=== PATIENT | male | born 1955 | race Caucasian/White ===

== ENCOUNTER 2022-07-15 09:08 | Outpatient (REF) | payer MEDICARE, MEDICAID, SELFPAY ==
[2022-07-15 11:19] LABS: MANUAL DIFF FLAG NO
[2022-07-15 11:20] LABS: Basophils Absolute Auto 0.1 X10*3/uL (0.0-0.2); Basophils Percent Auto 1.2 % (0-2); Eosinophils Absolute Auto 0.4 X10*3/uL (0.0-0.4); Eosinophils Percent Auto 4.2 % (0-4); Hematocrit 43.3 % (42.0-52.0); Hemoglobin 15.1 g/dl (14.0-18.0); Imm Gran Abs Auto 0.04 X10*3/uL (0.00-0.03); Imm Gran Pct Auto 0.4 % (0.0-0.4); Lymphocytes Absolute Auto 1.9 X10*3/uL (1.2-4.9); Lymphocytes Percent Auto 18.7 % (20-40); Mean Corpuscular HGB Conc 34.9 g/dl (31.0-36.0); Mean Corpuscular Hemoglobin 31.7 pg (27.0-33.0); Mean Platelet Volume 9.8 fL (9.4-12.4); Monocytes Absolute Auto 0.9 X10*3/uL (0.1-1.2); Monocytes Percent Auto 8.9 % (2-11); Neutrophils Absolute Auto 6.9 x10*3/uL (2.0-8.3); Neutrophils Percent Auto 66.6 % (45-73); Platelet Count 268 X10*3/uL (160-400); Red Blood Count 4.76 X10*6/uL (4.60-5.80); Red Cell Distribution Width 13.2 % (11.0-16.0); White Blood Count 10.3 X10*3/uL (4.8-10.8)
[2022-07-15 12:03] LABS: Alanine Aminotransferase 71 U/L (0-40); Albumin Level 4.4 g/dL (3.5-5.0); Alkaline Phosphatase 131 U/L (39-117); Anion Gap 17 (12-20); Aspartate Amino Transferase 57 U/L (5-37); Bilirubin Total 1.7 mg/dL (0.0-1.0); Blood Urea Nitrogen 9 mg/dL (9-16); Calcium 9.5 mg/dL (8.4-10.2); Carbon Dioxide 26 mmol/L (22-29); Chloride 101 mmol/L (96-108); Cholesterol 182 mg/dL; Estimated Glomerular Filt Rate > 60; Glucose Fasting 139 mg/dL (60-99); HDL Cholesterol 53 mg/dL; LDL Cholesterol Calculated 112 mg/dl; Potassium 4.5 mmol/L (3.3-5.1); Sodium 139 mmol/L (135-145); Total Protein 7.3 g/dL (6.5-8.0); Triglycerides 86 mg/dL
[2022-07-15 12:28] LABS: TSH reflex Free T4 1.79 uIU/mL (0.32-4.0)
[2022-07-20 15:42] LABS: Vitamin D 25-OH, D2 <4 ng/mL; Vitamin D 25-OH, D3 26 ng/mL; Vitamin D 25-OH, Total 26 ng/mL (30-100)
== END 2022-07-15 09:09 | disposition home or self-care (01) ==
LOC: HO.HMGCLDS 09:08
PROVIDERS: PCP Internal Medicine; Visit Provider Internal Medicine
DX: E10.9 Type 1 diabetes mellitus without complications (principal); J45.40 Moderate persistent asthma, uncomplicated; F41.1 Generalized anxiety disorder; E66.09 Other obesity due to excess calories; K76.0 Fatty (change of) liver, not elsewhere classified; E78.9 Disorder of lipoprotein metabolism, unspecified
CPT/HCPCS: 36415; 80053; 80061; 82306; 84443; 85025

== ENCOUNTER 2022-11-16 12:03 | Outpatient (REF) | payer MEDICARE, MEDICAID, SELFPAY ==
--- NOTE | ~2022-11-16 | XR_ITS ---
EXAMINATION: XR RIBS, RIGHT CLINICAL INFORMATION: R07.81 - Pleurodynia COMPARISON: None TECHNIQUE: Frontal view chest and 3 views of the right ribs are obtained for a total of 4 views. FINDINGS: The lungs are clear. There is no pneumothorax, airspace consolidation, or effusion. The costophrenic sulci are well-defined. The heart is normal in size. The vascularity is normal. The hilar and mediastinal contours are unremarkable. There are mild degenerative changes bilateral acromioclavicular joints and multilevel degenerative disc changes thoracic spine. There is calcific tendinosis in region of distal right superior rotator cuff with calcification measuring approximately 3 x 7 mm. There is no visible right rib fracture or rib destructive process. No periostitis. XR/XR ribs RT min 3V w CXR1V IMPRESSION: 1. No visible right rib fracture or rib destructive process. 2. No pneumothorax, airspace consolidation, or effusion. 3. Calcific tendinosis distal right shoulder superior rotator cuff.
== END 2022-11-16 12:04 | disposition home or self-care (01) ==
LOC: HO.HMGCX 12:03
PROVIDERS: PCP Internal Medicine; Visit Provider Nurse Practitioner Family
DX: M89.8X1 Other specified disorders of bone, shoulder (principal); R07.81 Pleurodynia
CPT/HCPCS: 71101

== ENCOUNTER 2022-12-22 13:16 | Outpatient (REF) | payer MEDICARE, MEDICAID, SELFPAY ==
[2022-12-22 16:29] LABS: MANUAL DIFF FLAG NO
[2022-12-22 16:33] LABS: Basophils Absolute Auto 0.1 X10*3/uL (0.0-0.2); Basophils Percent Auto 1.2 % (0-2); Eosinophils Absolute Auto 0.4 X10*3/uL (0.0-0.4); Eosinophils Percent Auto 4.7 % (0-4); Hematocrit 45.8 % (42.0-52.0); Hemoglobin 15.5 g/dl (14.0-18.0); Imm Gran Abs Auto 0.03 X10*3/uL (0.00-0.03); Imm Gran Pct Auto 0.3 % (0.0-0.4); Lymphocytes Absolute Auto 1.6 X10*3/uL (1.2-4.9); Lymphocytes Percent Auto 18.4 % (20-40); Mean Corpuscular HGB Conc 33.8 g/dl (31.0-36.0); Mean Corpuscular Hemoglobin 32.2 pg (27.0-33.0); Mean Platelet Volume 10.2 fL (9.4-12.4); Monocytes Absolute Auto 0.7 X10*3/uL (0.1-1.2); Monocytes Percent Auto 8.1 % (2-11); Neutrophils Absolute Auto 5.9 x10*3/uL (2.0-8.3); Neutrophils Percent Auto 67.3 % (45-73); Platelet Count 233 X10*3/uL (160-400); Red Blood Count 4.82 X10*6/uL (4.60-5.80); Red Cell Distribution Width 14.2 % (11.0-16.0); White Blood Count 8.8 X10*3/uL (4.8-10.8)
[2022-12-22 16:54] LABS: Alanine Aminotransferase 60 U/L (0-40); Albumin Level 4.1 g/dL (3.5-5.0); Alkaline Phosphatase 115 U/L (39-117); Anion Gap 13 (12-20); Aspartate Amino Transferase 41 U/L (5-37); Blood Urea Nitrogen 11 mg/dL (9-16); Calcium 9.2 mg/dL (8.4-10.2); Carbon Dioxide 29 mmol/L (22-29); Chloride 103 mmol/L (96-108); Estimated Glomerular Filt Rate > 60; Glucose Random 208 mg/dL (60-115); Potassium 4.2 mmol/L (3.3-5.1); Sodium 141 mmol/L (135-145); Total Protein 6.8 g/dL (6.5-8.0)
[2022-12-24 10:39] LABS: LDL Cholesterol Direct 91 mg/dL (<100)
== END 2022-12-22 13:17 | disposition home or self-care (01) ==
LOC: HO.HMGCLDS 13:16
PROVIDERS: Visit Provider Internal Medicine
DX: Z00.01 Encounter for general adult medical examination with abnormal findings (principal); E10.9 Type 1 diabetes mellitus without complications; J45.40 Moderate persistent asthma, uncomplicated; F41.1 Generalized anxiety disorder; E66.09 Other obesity due to excess calories; K76.0 Fatty (change of) liver, not elsewhere classified; E78.9 Disorder of lipoprotein metabolism, unspecified; I10 Essential (primary) hypertension; K21.9 Gastro-esophageal reflux disease without esophagitis
CPT/HCPCS: 36415; 80053; 83721; 85025

== ENCOUNTER 2022-12-29 14:00 | Outpatient (RCR) | payer MEDICARE, MEDICAID, SELFPAY ==
--- NOTE | 2022-12-02 14:00 | MHC.PT.EP ---
[facility] [place] Office [place] Office [place] Office [address] [phone] F: [phone] F: [phone] F: [phone] F: [phone] Physical Therapy Plan of Care Date of Evaluation: Date of Surgery: Diagnosis: R shoulder bone disorder Assessment: Patient is a 67 year old R handed male who presents with s/s consistent with R shoulder pain. 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 He has a history of frozen shoulder. Patient past medical history also includes DM. Current impairments include pain, posture, ROM, strength, activity tolerance and functional mobility. Functional limitations include decreased ability to lift, carry, reach, push, pull, dress, and sleep. Patient is motivated with good rehab potential. Skilled PT will address impairments and functional limitations in order to achieve goals. Frequency and Duration: The patient will be seen 2x/week for 5 weeks Short Term Goals: I with HEP - 2 weeks AROM cervical flexion 25, ext 30, rotation 45 b/l - 3 weeks TTP medial scap, LS/UT absent - 3 weeks Chcf Goals: Shoulder AROM flexion and scaption > 125 - 5 weeks SPADI 30/130 or better - 5 weeks Improved postural awareness - 5 weeks Pec tightness min b/l - 5 weeks Treatment Plan: Modalities to reduce pain, spasms and effusion. Manual therapy to restore motion and function. Therapeutic exercise to improve strength and flexibility. Neuromuscular re-education for posture and balance. Therapeutic activities to return to functional activities of daily living. Electronically signed by: Bradley Madden, PT Please sign and return to therapist. Thank you for your referral.
--- NOTE | 2023-03-15 09:07 | MHC.PT.DC ---
[facility] [place] Office [place] Office [place] Office [address] Amberly Guzman [address] [phone] F: [phone] F: [phone] F: [phone] F: [phone] Physical Therapy Discharge Report Diagnosis: R shoulder bone disorder Date of Surgery: Date of Evaluation: 12/02/22 Date of Discharge: 01/30/23 Treatments to Date: 4 Cancellations to Date: No Shows to Date: Discharge Status: Patient Elected to Stop Discharge Summary: We were not able to progress in any way during 4 appointments. 12/29/22: pt notes having to leave at 2:30 today and preferring CP before dismissal. he was able to do some stretching within pain free ROM today. 12/24: Pt reports he does his exercises to a point then needs CP to calm down Sx. Progressed his home program with shoulder stab and AAROM ideas; some increased discomfort by the end of session though as Pt reports typical after 6-8 min with CP his Sx improved. 12/17/22: pt unable to perform pulleys or UBE due to pain. pain at CT junction to R with push/pull activities and cervical rotation. 12/11/22: pt has been compliant with HEP. no adverse reactions from HEP. [place] scaption caused some discomfort today. IFC started with good resopnse. Patient is a 67 year old R handed male who presents with s/s consistent with R shoulder pain. 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 He has a history of frozen shoulder. Patient past medical history also includes DM. Current impairments include pain, posture, ROM, strength, activity tolerance and functional mobility. Functional limitations include decreased ability to lift, carry, reach, push, pull, dress, and sleep. Patient is motivated with good rehab potential. Skilled PT will address impairments and functional limitations in order to achieve goals. Electronically signed by: Bradley Madden, PT Please sign and return to therapist. Thank you for your referral.
== END 2023-03-15 09:16 | disposition home or self-care (01) ==
LOC: HO.PTCHIC 14:00
PROVIDERS: PCP Internal Medicine; Visit Provider Internal Medicine
DX: M89.8X1 Other specified disorders of bone, shoulder (principal)
CPT/HCPCS: 97014; 97110; 97140; 97162

== ENCOUNTER 2023-03-26 12:19 | Outpatient (REF) | payer MEDICARE, MEDICAID, SELFPAY ==
[2023-03-26 14:32] LABS: Alanine Aminotransferase 35 U/L (0-40); Alkaline Phosphatase 116 U/L (39-117); Anion Gap 12 (12-20); Aspartate Amino Transferase 25 U/L (5-37); Blood Urea Nitrogen 10 mg/dL (9-16); Calcium 9.4 mg/dL (8.4-10.2); Carbon Dioxide 30 mmol/L (22-29); Chloride 103 mmol/L (96-108); Estimated Glomerular Filt Rate > 60; Glucose Random 201 mg/dL (60-115); Potassium 3.8 mmol/L (3.3-5.1); Sodium 141 mmol/L (135-145); Total Protein 7.1 g/dL (6.5-8.0)
[2023-03-26 14:40] LABS: Prostate Specific Antigen 0.22 ng/mL (<0.05-4.0)
[2023-03-28 02:34] LABS: LDL Cholesterol Direct 101 mg/dL (<100)
== END 2023-03-26 12:20 | disposition home or self-care (01) ==
LOC: HO.HMGCLDS 12:19
PROVIDERS: Absent Provider Urology; PCP Internal Medicine; Visit Provider Internal Medicine
DX: Z12.5 Encounter for screening for malignant neoplasm of prostate (principal); E66.09 Other obesity due to excess calories; E78.9 Disorder of lipoprotein metabolism, unspecified; F41.1 Generalized anxiety disorder; I10 Essential (primary) hypertension; J45.40 Moderate persistent asthma, uncomplicated; K76.0 Fatty (change of) liver, not elsewhere classified; N40.1 Benign prostatic hyperplasia with lower urinary tract symptoms
CPT/HCPCS: 36415; 80053; 83721; 84153

== ENCOUNTER 2023-06-08 11:49 | Outpatient (AMB) | payer MEDICARE, MEDICAID, SELFPAY ==
[2023-06-08 11:51] VITALS: BP 146/78; PULSE 83; O2SAT 99; BMI 37.6
--- NOTE | 2023-06-08 11:51 | MHC.PC.OV ---
Vital Signs 06/08/23 11:51 Height 5 ft 8 in Weight 247 lb 2 oz BMI 37.6 BP 146/78 H Blood Pressure Location Rt brachial Position Sitting Pulse 83 Pulse Source Pulse Oximeter Pulse Oximetry (%) 99 Oxygen Delivery Method Room Air Intake Visit Reasons: 3m follow up Allergies lisinopril Adverse Reaction (Verified 06/08/23 11:52) Cough eggs Allergy (Uncoded 09/18/22 07:34) nausea Medication List - Last Reconciled 06/08/23 by Aki Mcfarlane MD alcohol swabs (Alcohol Prep Pads) pad topical alprazolam 0.25 mg PO ONCE 90 days atorvastatin 20 mg PO DAILY azelastine intranasal budesonide-formoterol 80-4.5 mcg/actuation (Symbicort) 2 puffs inhalation BID epinephrine IM insulin aspart (niacinamide) 100 unit/mL (3 mL) (Fiasp FlexTouch U-100 Insulin) 1 sliding scale dose subcut TID insulin glargine (Lantus Solostar U-100 Insulin) 95 subcutaneously; losartan 25 mg PO BID 90 days mometasone-formoterol 100-5 mcg/actuation (Dulera) 2 puffs inhalation BID pantoprazole 40 mg PO DAILY 90 days pen needle, diabetic (BD Ultra-Fine Mini Pen Needle) As directed spironolactone 25 mg PO DAILY Ventolin HFA 90 mcg/actuation (albuterol sulfate) 2 puffs inhalation Q6-8H NS Tobacco use date assessed: 06/08/23 Fall risk assessment: 2 + Falls in past year Last assessed Fall Risk: 06/08/23 Dental Screening Dental Screen Date: 06/08/23 Did you have a dental visit in the last 12 months?: Yes Did you have a dental problem in the last 6 months where you did not have access to dental care?: No Was dental information given to patient?: No HPI 3m follow up HPI Details Patient is 68-year-old gentleman came in today for medication refill and follow-up Blood pressure is elevated today at 146/78 Patient is taking losartan 25 mg b.i.d. and spironolactone 25 mg daily I have told him to start logging his blood pressure at home and bring it along next visit. He is also wheezing slightly right side of lung posteriorly, patient is supposed to be on Symbicort daily but he is not taking it daily. Instructed to start using it regularly and rinse his mouth after Alprazolam sent for next 3 month Patient is aware of side effects Labs are needed before next visit fasting Other providers patient is seeing Endocrinology Dr. Jenny Bird with [facility] Seeing pulp mixer for kidney cyst in [place] [employer] [facility] at [place] for fatty liver Dr Collado Urologist Dr. Amezcua [facility] eye care, Dr Cartagena/Valerie All medication through PCP office except diabetes medication Patient is on alprazolam 0.25 mg as needed he gets 90 tablets every 3 months for anxiety Taking atorvastatin 20 mg for lipid control Symbicort for asthma Losartan 25 mg b.i.d. and spironolactone 25 mg for blood pressure control Pantoprazole 40 mg for chronic GERD BMI is elevated patient is having difficulty losing weight Diabetic neuropathy stable Follow-up 3 months [facility] Surgical History Hx of appendectomy Hx of tonsillectomy Family History Father Heart problem Mother Rheumatoid arthritis Social History Housing: Condominium Patient Tobacco Use Status: Never used Tobacco e-Cigarette/Vaping Use: Never Used service: No Current occupational status: retired Current occupational exposures/hazards: No Cognitive needs: No Hearing needs: No Vision needs: Yes Questionnaire PHQ-9 Over the last 2 weeks, how often have you been bothered by any of the following problems? 93532 - PHQ-9 Billing: Patient declined-do not bill Source: Developed by Drs. Larry Small, Cheryle Pandya, Chun Ayala and colleagues, with an educational mami from [employer]. Review of Systems Const Denies chills and Denies fever(s) ENT Denies epistaxis and Denies nasal discharge Card Denies chest pain Resp Denies chest congestion and Denies hemoptysis GI Denies diarrhea and Denies nausea Skin/Breast Denies rash Neuro Reports no additional complaints Psych Reports no additional complaints Endo Reports no additional complaints Physical exam (Primary Care) Vital Signs: Last Vital Signs Pulse 83 06/08/23 11:51 BP 146/78 H 06/08/23 11:51 Pulse Ox 99 06/08/23 11:51 Oxygen Delivery Method Room Air 06/08/23 11:51 BMI result Body Mass Index 37.6 Tobacco/Smoking Status: Tobacco use Status Tobacco use date assessed 06/08/23 06/08/23 11:54 Patient Tobacco Use Status Never used Tobacco 06/08/23 11:54 e-Cigarette/Vaping Use Never Used 06/08/23 11:54 Const General: cooperative, comfortable and no acute distress Orientation/consciousness: patient oriented x3 HENMT Head: Yes normocephalic Eyes General: appearance normal, both eyes and all related structures Neck Neck: Yes supple Resp Other: Mild wheezing right lung posteriorly Effort & Inspection: normal respiratory effort, no cough and no stridor Cardio Rhythm: regular rhythm Heart sounds: S1 normal heart sound present and S2 normal heart sound present Skin General skin exam: turgor normal Neuro General: patient oriented x3, tone normal and moves all extremities Extrem Right lower extremity: no edema Left lower extremity: no edema Assessment and Plan Assessment & Plan (1) Asthma, moderate persistent: Code(s): J45.40 - Moderate persistent asthma, uncomplicated Qualifiers: Asthma complication type: uncomplicated Qualified Code(s): J45.40 - Moderate persistent asthma, uncomplicated (2) Insulin dependent type 1 diabetes mellitus: Code(s): E10.9 - Type 1 diabetes mellitus without complications Qualifiers: Diabetes mellitus complication detail: with polyneuropathy Diabetes mellitus complication status: with neurologic complications Qualified Code(s): E10.42 - Type 1 diabetes mellitus with diabetic polyneuropathy (3) Anxiety, generalized: Code(s): F41.1 - Generalized anxiety disorder (4) Obesity due to excess calories: Code(s): E66.09 - Other obesity due to excess calories Qualifiers: Body mass index: BMI 37.0-37.9 Obesity classification: adult class 2 (BMI 35 - 39.9) Serious obesity comorbidity presence: with serious comorbidity Qualified Code(s): E66.01 - Morbid (severe) obesity due to excess calories; Z68.37 - Body mass index [BMI] 37.0-37.9, adult (5) Fatty liver: Code(s): K76.0 - Fatty (change of) liver, not elsewhere classified (6) Lipid disorder: Code(s): E78.9 - Disorder of lipoprotein metabolism, unspecified (7) Hypertension, essential: Code(s): I10 - Essential (primary) hypertension (8) Chronic GERD: Code(s): K21.9 - Gastro-esophageal reflux disease without esophagitis (9) Diabetic neuropathy: Code(s): E11.40 - Type 2 diabetes mellitus with diabetic neuropathy, unspecified Qualifiers: Diabetes mellitus complication detail: diabetic polyneuropathy Diabetes mellitus type: type 1 Qualified Code(s): E10.42 - Type 1 diabetes mellitus with diabetic polyneuropathy Plan Patient is 68-year-old gentleman came in today for medication refill and follow-up Blood pressure is elevated today at 146/78 Patient is taking losartan 25 mg b.i.d. and spironolactone 25 mg daily I have told him to start logging his blood pressure at home and bring it along next visit. He is also wheezing slightly right side of lung posteriorly, patient is supposed to be on Symbicort daily but he is not taking it daily. Instructed to start using it regularly and rinse his mouth after Alprazolam sent for next 3 month Patient is aware of side effects Labs are needed before next visit fasting Other providers patient is seeing Endocrinology Dr. Jenny Bird with [facility] Seeing pulp mixer for kidney cyst in [place] [employer] at [place] for fatty liver Dr Collado Urologist Dr. Amezcua [facility] eye care, Dr Cartagena/Valerie All medication through PCP office except diabetes medication Patient is on alprazolam 0.25 mg as needed he gets 90 tablets every 3 months for anxiety Taking atorvastatin 20 mg for lipid control Symbicort for asthma Losartan 25 mg b.i.d. and spironolactone 25 mg for blood pressure control Pantoprazole 40 mg for chronic GERD BMI is elevated patient is having difficulty losing weight Diabetic neuropathy stable Follow-up 3 months Orders: Orders Comprehensive Met. Panel Today E10.9 - Type 1 diabetes mellitus without complications, E11.40 - Type 2 diabetes mellitus with diabetic neuropathy, unspecified, E66.09 - Other obesity due to excess calories, E78.9 - Disorder of lipoprotein metabolism, unspecified, F41.1 - Generalized anxiety disorder, I10 - Essential (primary) hypertension, J45.40 - Moderate persistent asthma, uncomplicated, K21.9 - Gastro-esophageal reflux disease without esophagitis, K76.0 - Fatty (change of) liver, not elsewhere classified Hemoglobin A1c Today E10.9 - Type 1 diabetes mellitus without complications, E11.40 - Type 2 diabetes mellitus with diabetic neuropathy, unspecified, E66.09 - Other obesity due to excess calories, E78.9 - Disorder of lipoprotein metabolism, unspecified, F41.1 - Generalized anxiety disorder, I10 - Essential (primary) hypertension, J45.40 - Moderate persistent asthma, uncomplicated, K21.9 - Gastro-esophageal reflux disease without esophagitis, K76.0 - Fatty (change of) liver, not elsewhere classified Lipid Panel Today E10.9 - Type 1 diabetes mellitus without complications, E11.40 - Type 2 diabetes mellitus with diabetic neuropathy, unspecified, E66.09 - Other obesity due to excess calories, E78.9 - Disorder of lipoprotein metabolism, unspecified, F41.1 - Generalized anxiety disorder, I10 - Essential (primary) hypertension, J45.40 - Moderate persistent asthma, uncomplicated, K21.9 - Gastro-esophageal reflux disease without esophagitis, K76.0 - Fatty (change of) liver, not elsewhere classified TSH reflex Free T4 Today E10.9 - Type 1 diabetes mellitus without complications, E11.40 - Type 2 diabetes mellitus with diabetic neuropathy, unspecified, E66.09 - Other obesity due to excess calories, E78.9 - Disorder of lipoprotein metabolism, unspecified, F41.1 - Generalized anxiety disorder, I10 - Essential (primary) hypertension, J45.40 - Moderate persistent asthma, uncomplicated, K21.9 - Gastro-esophageal reflux disease without esophagitis, K76.0 - Fatty (change of) liver, not elsewhere classified Complete Blood Count Auto Diff Today E10.9 - Type 1 diabetes mellitus without complications, E11.40 - Type 2 diabetes mellitus with diabetic neuropathy, unspecified, E66.09 - Other obesity due to excess calories, E78.9 - Disorder of lipoprotein metabolism, unspecified, F41.1 - Generalized anxiety disorder, I10 - Essential (primary) hypertension, J45.40 - Moderate persistent asthma, uncomplicated, K21.9 - Gastro-esophageal reflux disease without esophagitis, K76.0 - Fatty (change of) liver, not elsewhere classified Medications: New spironolactone 25 mg PO DAILY 90 tabs 1RF Refilled alprazolam 0.25 mg PO ONCE 90 tabs 0RF 90 days Coding Level of Care Code Est Pt Level 4 (30832) Diagnoses Asthma, moderate persistent J45.40 Asthma complication type: uncomplicated Insulin dependent type 1 diabetes mellitus E10.42 Diabetes mellitus complication detail: with polyneuropathy Diabetes mellitus complication status: with neurologic complications Anxiety, generalized F41.1 Obesity due to excess calories E66.01; Z68.37 Body mass index: BMI 37.0-37.9 Obesity classification: adult class 2 (BMI 35 - 39.9) Serious obesity comorbidity presence: with serious comorbidity Fatty liver K76.0 Lipid disorder E78.9 Hypertension, essential I10 Chronic GERD K21.9 Diabetic neuropathy E10.42 Diabetes mellitus complication detail: diabetic polyneuropathy Diabetes mellitus type: type 1
== END 2023-06-08 12:24 | disposition home or self-care (01) ==
PROVIDERS: PCP Internal Medicine; Visit Provider Internal Medicine
DX: J45.40 Moderate persistent asthma, uncomplicated (principal); E10.42 Type 1 diabetes mellitus with diabetic polyneuropathy; E66.01 Morbid (severe) obesity due to excess calories; Z68.37 Body mass index [BMI] 37.0-37.9, adult; I10 Essential (primary) hypertension; K21.9 Gastro-esophageal reflux disease without esophagitis; F41.1 Generalized anxiety disorder; K76.0 Fatty (change of) liver, not elsewhere classified; E78.9 Disorder of lipoprotein metabolism, unspecified
CPT/HCPCS: 99214